=== PATIENT | female | born 1950 | race Caucasian/White ===

== ENCOUNTER 2019-01-06 08:22 | Day surgery (SDC) | payer OTHER ==
[2019-01-05 12:22] VITALS: BMI 67.0
[2019-01-06] MEDS ORDERED: PROPOFOL 20 ML ONE ×2 (09:23)
[2019-01-06] MEDS ORDERED: LIDOCAINE HCL/PF 2% SDV 5ML VIAL ONE (09:23)
[2019-01-06 10:19] VITALS: TEMP 98.6
[2019-01-06 10:25] VITALS: BP 118/61; PULSE 79
--- NOTE | 2019-01-18 09:34 | PATH ---
Surgical Pathology Report Patient Name: ANIYAH BEAR [facility]. Rec. #: [id number] /Age/Gender: 1950 (Age: 68) / F Account: [id number] Location: [facility] Taken: 01/06/2019 Received: 01/06/2019 Reported: 01/18/2019 Physicians: Jelani Torres M.D. Specimen(s) Received A: SECOND PORTION OF DUODENUM B: GASTRIC ANTRUM Clinical History Abdominal pain, peptic ulcer disease. Postoperative diagnosis: Gastritis Final Diagnosis A. SECOND PORTION OF DUODENUM, BIOPSY: MILD CHRONIC DUODENITIS. B. 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 IMMUNOSTAIN IS NEGATIVE FOR H PYLORI ORGANISMS. Electronically Signed Betzaida Mccoy M.D. Gross Description A. received in formalin, labeled, "second portion duodenum" are two pieces of inman, tissue, each up to 0.3 cm in greatest dimension. Entirely submitted in one cassette. B. received in formalin, labeled, "gastric antrum." are two pieces of inman, tissue, each up to 0.3 cm in greatest dimension. Entirely submitted in one cassette. AE/01/07/2019 ebram/01/07/2019
== END 2019-01-06 10:30 | disposition home or self-care (01) ==
LOC: FASU-ENDO 08:22
PROVIDERS: ATTEND Internal Medicine Gastroenterology
PROC: 0DB98ZX Excision of Duodenum, Via Natural or Artificial Opening Endoscopic, Diagnostic (ICD-10-PCS; 2019-01-06)
PROC: 0DB68ZX Excision of Stomach, Via Natural or Artificial Opening Endoscopic, Diagnostic (ICD-10-PCS; 2019-01-06)
PROC: 0DJD8ZZ Inspection of Lower Intestinal Tract, Via Natural or Artificial Opening Endoscopic (ICD-10-PCS; principal; 2019-01-06 09:36)
DX: Z12.11 Encounter for screening for malignant neoplasm of colon (principal); K29.50 Unspecified chronic gastritis without bleeding; K29.80 Duodenitis without bleeding; R10.13 Epigastric pain
CPT/HCPCS: 43239; G0121; 88305-TC; 88342-TC